=== PATIENT | male | born 1990 | race African-American/Black ===

== ENCOUNTER 2023-03-09 11:03 | Inpatient (IN) | payer OTHER ==
[2023-03-09 11:22] VITALS: BMI 19.1
[2023-03-09] MEDS ORDERED: LOPERAMIDE HCL 2 MG CAPSULE PO PRN (12:37)
[2023-03-09] MEDS ORDERED: NALOXONE HCL 0.4 MG/ML VIAL IM PRN (12:37)
[2023-03-09] MEDS ORDERED: BENZONATATE 200 MG CAPSULE PO PRN (12:37)
[2023-03-09] MEDS ORDERED: NICOTINE POLACRILEX 2 MG LOZENGE BC PRN (12:37)
[2023-03-09] MEDS ORDERED: BENZOCAINE/MENTHOL (CHLORASEPTIC ) LOZENGE MM PRN (12:37)
[2023-03-09] MEDS ORDERED: guaiFENesin 600 MG TABLET.ER (FP) PO PRN (12:37)
[2023-03-09] MEDS ORDERED: NALOXONE HCL (KLOXXADO) 8 MG SPRAY NS PRN (12:37)
[2023-03-09] MEDS ORDERED: POLYETHYLENE GLYCOL (HEALTHYLAX) 3350 17 GM PACKET PO PRN (12:37)
[2023-03-09] MEDS ORDERED: IBUPROFEN 600 MG TABLET (FP) PO PRN (12:37)
[2023-03-09] MEDS ORDERED: hydrOXYzine PAMOATE 25 MG CAPSULE (FP) PO PRN (12:37)
[2023-03-09] MEDS ORDERED: MAG HYDROX/AL HYDROX/SIMETH 30 ML UNIT-DOSE CUP PO PRN (12:37)
[2023-03-09] MEDS ORDERED: ACETAMINOPHEN 325 MG TABLET (FP) PO PRN (12:37)
[2023-03-09] MEDS ORDERED: IBUPROFEN 400 MG TABLET (FP) PO PRN (12:37)
[2023-03-09] MEDS ORDERED: MAGNESIUM HYDROX 2400MG/30ML ORAL SUSPENSION 30 ML CUP PO PRN (12:37)
[2023-03-09] MEDS ORDERED: PRENATAL VITAMINS W/ FOLIC ACID TABLET (FP) PO ONE (13:33)
[2023-03-09] MEDS: PRENATAL VITAMINS W/ FOLIC ACID TABLET (FP) PO SCH (13:35)
[2023-03-09] MEDS ORDERED: TUBERCULIN PPD 5 TU/0.1ML SYRINGE (IN PATIENT USE ONLY) ID ONE (16:38)
[2023-03-09] MEDS: MELATONIN 5 MG TABLETS PO SCH (21:20)
[2023-03-09] MEDS: THIAMINE HCL 100 MG TABLET (FP) PO SCH (21:20)
[2023-03-10] MEDS: PRENATAL VITAMINS W/ FOLIC ACID TABLET (FP) PO SCH (10:18)
[2023-03-10 14:02] LABS: CALCIUM 8.8 mg/dL (8.5-10.1)
[2023-03-10 14:03] LABS: ALBUMIN 3.2 g/dl (3.4-5.0)
[2023-03-10 14:04] LABS: URINE APPEARANCE CLEAR; URINE BILIRUBIN NEGATIVE (NEGATIVE); URINE COLOR YELLOW; URINE GLUCOSE (UA) NEGATIVE (NEGATIVE); URINE KETONE TRACE (NEGATIVE); URINE LEUK ESTERASE NEGATIVE (NEGATIVE); URINE NITRITE NEGATIVE (NEGATIVE); URINE PROTEIN NEGATIVE (NEGATIVE); URINE UROBILINOGEN 0.2 mg/dL (0.2-1.0)
[2023-03-10 14:05] LABS: CREATININE 0.9 mg/dL (0.55-1.3)
[2023-03-10 14:07] LABS: BILIRUBIN,TOTAL 0.4 mg/dL (0.2-1); TOT PROT 6.9 g/dl (6.4-8.2)
[2023-03-10 14:08] LABS: HEMATOCRIT 37.6 % (35.4-49); HEMOGLOBIN 12.3 GM/dL (11.7-16.9); MCH 31.1 pg (25.7-33.7); MCHC 32.7 g/dl (32.0-35.9); MEAN PLT VOLUME 8.5 fl (7.5-11.1); PLATELET COUNT 357 10^3/uL (134-434); RBC 3.95 M/mm3 (4.00-5.60); RDW 13.6 % (11.9-15.9); WHITE BLOOD COUNT 8.8 K/mm3 (4.0-10.0)
[2023-03-10 17:23] LABS: SYPHILIS W/ RPR CONF NON-REACTIVE (NONREACTIVE)
[2023-03-10] MEDS: MELATONIN 5 MG TABLETS PO SCH (21:26)
[2023-03-10] MEDS: THIAMINE HCL 100 MG TABLET (FP) PO SCH (21:26)
[2023-03-11] MEDS: ARIPiprazole 5 MG TABLET PO SCH (10:28)
[2023-03-11] MEDS: PRENATAL VITAMINS W/ FOLIC ACID TABLET (FP) PO SCH (10:28)
[2023-03-11] MEDS: THIAMINE HCL 100 MG TABLET (FP) PO SCH (21:33)
[2023-03-11] MEDS: MELATONIN 5 MG TABLETS PO SCH (21:33)
[2023-03-12] MEDS: ARIPiprazole 5 MG TABLET PO SCH (10:03)
[2023-03-12] MEDS: PRENATAL VITAMINS W/ FOLIC ACID TABLET (FP) PO SCH (10:03)
[2023-03-12] MEDS: THIAMINE HCL 100 MG TABLET (FP) PO SCH (21:50)
[2023-03-12] MEDS: MELATONIN 5 MG TABLETS PO SCH (21:50)
[2023-03-13] MEDS: PRENATAL VITAMINS W/ FOLIC ACID TABLET (FP) PO SCH (09:50)
[2023-03-13] MEDS: ARIPiprazole 5 MG TABLET PO SCH (09:50)
[2023-03-13] MEDS: MELATONIN 5 MG TABLETS PO SCH (21:45)
[2023-03-13] MEDS: THIAMINE HCL 100 MG TABLET (FP) PO SCH (21:45)
[2023-03-14] MEDS: PRENATAL VITAMINS W/ FOLIC ACID TABLET (FP) PO SCH (09:38)
[2023-03-14] MEDS: ARIPiprazole 5 MG TABLET PO SCH (09:38)
[2023-03-14] MEDS: THIAMINE HCL 100 MG TABLET (FP) PO SCH (21:33)
[2023-03-14] MEDS: MELATONIN 5 MG TABLETS PO SCH (21:33)
[2023-03-15] MEDS: PRENATAL VITAMINS W/ FOLIC ACID TABLET (FP) PO SCH (09:53)
[2023-03-15] MEDS: ARIPiprazole 5 MG TABLET PO SCH (09:53)
[2023-03-15] MEDS: THIAMINE HCL 100 MG TABLET (FP) PO SCH (21:15)
[2023-03-15] MEDS: MELATONIN 5 MG TABLETS PO SCH (21:15)
[2023-03-16 06:33] VITALS: BP 137/87; PULSE 94; RESP 16; TEMP 97.1
[2023-03-16] MEDS: PRENATAL VITAMINS W/ FOLIC ACID TABLET (FP) PO SCH (09:05)
[2023-03-16] MEDS: ARIPiprazole 5 MG TABLET PO SCH (09:05)
== END 2023-03-16 09:28 | disposition home or self-care (01) | DRG 772 ==
LOC: YASAS 11:03 → Y3W 15:26 → Y3E 03-11 13:42 → Y3W 03-11 14:25 → Y3E 03-11 17:05
PROVIDERS: ADMIT Allergy & Immunology; ATTEND Psychiatry & Neurology Pain Medicine
PROC: HZ42ZZZ Group Counseling for Substance Abuse Treatment, Cognitive-Behavioral (ICD-10-PCS; principal; 2023-03-09)
DX: F10.20 Alcohol dependence, uncomplicated (principal); F14.20 Cocaine dependence, uncomplicated; F15.20 Other stimulant dependence, uncomplicated; F17.210 Nicotine dependence, cigarettes, uncomplicated; F31.9 Bipolar disorder, unspecified; F19.24 Other psychoactive substance dependence with psychoactive substance-induced mood disorder; I10 Essential (primary) hypertension; Z59.01 Sheltered homelessness
CPT/HCPCS: 36415; 80053; 81003; 85027; 86780; 86803; 87635; 87811; 93005; 93010